=== PATIENT | male | born 1975 | race Caucasian/White ===

== ENCOUNTER 2020-12-23 09:57 | Emergency (ER) | payer OTHER ==
[2020-12-23] MEDS ORDERED: Lidocaine 2% 20 ML MDV INFILT ONE (09:58)
--- NOTE | 2020-12-23 11:28 | EDM.PDOC ---
ED HPI GENERAL MEDICAL PROBLEM - General Stated Complaint: DOG BITE Time Seen by Provider: 12/23/20 10:00 Source of Information: Reports: Patient History Limitations: Reports: No Limitations - History of Present Illness INITIAL COMMENTS - FREE TEXT/NARRATIVE: Patient was in his normal good state of health with only chronic cough secondary to smoking. He sustained an accidental dog bite. Bite to the distal right middle finger. There was copious bleeding. He immediately flushed with tap water for several minutes. Came to the emergency department for evaluation and treatment. - Related Data Allergies Allergy/AdvReac Type Severity Reaction Status Date / Time albuterol Allergy Numbness Verified 12/23/20 11:34 bee venom protein (honey bee) Allergy Hives Verified 12/23/20 11:34 Home Meds: Home Meds Amoxicillin/Potassium Clav [Augmentin 875-125 Tablet] 1 each PO BID #14 tablet 12/23/20 [Rx] Review of Systems - Review of Systems Review Of Systems: See Below Constitutional: Reports: No Symptoms Eyes: Reports: No Symptoms Ears: Reports: No Symptoms Nose: Reports: No Symptoms Mouth/Throat: Reports: No Symptoms Respiratory: Reports: No Symptoms Cardiovascular: Reports: No Symptoms GI/Abdominal: Reports: No Symptoms Genitourinary: Reports: No Symptoms Musculoskeletal: Reports: No Symptoms Skin: Reports: Wound Neurological: Reports: No Symptoms Psychiatric: Reports: No Symptoms ED EXAM, GENERAL - Physical Exam Exam: See Below Exam Limited By: No Limitations General Appearance: Alert, WD/WN, No Apparent Distress Eye Exam: Bilateral Eye: EOMI Head: Atraumatic, Normocephalic Neck: Normal Inspection Respiratory/Chest: No Respiratory Distress Cardiovascular: Normal Peripheral Pulses, Regular Rate, Rhythm, No Murmur Peripheral Pulses: 2+: Radial (L), Radial (R) GI/Abdominal: Normal Bowel Sounds, Non-Tender Back Exam: Normal Inspection. No: CVA Tenderness (R), CVA Tenderness (L) Extremities: Normal Inspection, No Pedal Edema Neurological: Alert, Oriented, CN II-XII Intact, Normal Cognition Psychiatric: Normal Affect, Normal Mood Skin Exam: Other (Approximately 3 cm irregularly-shaped laceration of the anterior aspect of the distal right third digit, wound is not bleeding at the time of inspection and no discharge. After local anesthetic wound was cleaned, no debris) ED TRAUMA EXTREMITY PROCEDURES - Laceration/Wound Repair Right Upper Anterior Midline Distal Digit - 3rd (Middle) Lac/Wound Length In cm: 3 Appearance: Subcutaneous, Clean Distal NVT: No Tendon Injury Local Anesthesia - Lidocaine (Xylocaine): 2% Plain Local Anesthetic Volume: 3cc Skin Prep: Chlorhexidine (Hibiciens) Exploration/Debridement/Repair: Wound Explored, No Foreign Material Found Closed With: Sutures Suture Size: 4-0 Suture Type: Interrupted Course - Vital Signs Text/Narrative:: Approximately 3 cm total length irregular U-shaped laceration/tear of the anterior aspect of the distal right third digit. Anesthetized with 2% lidocaine without epi. Wound was again rinsed under tap water and cleaned with Hibiclens/soap. Wound was sutured with 7 sutures using 4-0 ethylene with loose approximation. The area was then cleaned and dressed with sterile gauze and protected with a single splint. Patient advised to rest for at least 1 week before doing any work with his hand and to leave the stitches in for approximately 14 days. Departure - Departure Time of Disposition: 11:36 Disposition: Home, Self-Care 01 Condition: Good Clinical Impression: Dog bite of middle finger - Discharge Information *PRESCRIPTION DRUG MONITORING PROGRAM REVIEWED*: Not Applicable *COPY OF PRESCRIPTION DRUG MONITORING REPORT IN PATIENT JAVIER: Not Applicable Instructions: Animal Bite, Adult, [id number] Referrals: PCP,Not In Area [Primary Care Provider] - Additional Instructions: Patient advised to take antibiotics as directed until completed. Use ice, Tylenol, NSAIDs for pain control. Patient advised to try to take it easy at work for at least the next week to 2 weeks and to have the sutures removed in 10 to 14 days.
== END 2020-12-23 11:46 | disposition home or self-care (01) ==
LOC: FB.ED 09:57
DX: S61.252A Open bite of right middle finger without damage to nail, initial encounter (principal); Z88.8 Allergy status to other drugs, medicaments and biological substances; Z91.030 Bee allergy status; W54.0XXA Bitten by dog, initial encounter
CPT/HCPCS: 12002; 99283-25